=== PATIENT | female | born 1985 | race African-American/Black ===

== ENCOUNTER 2017-02-14 17:56 | Emergency (ER) | payer MEDICAID ==
[~2017-02-14] VITALS: Ht 157.5 cm; Wt 84.8 kg
[2017-02-14 18:04] VITALS: BP 107/60
[2017-02-14] MEDS ORDERED: ACETAMINOPHEN ES 500 MG TABLET PO ONE (18:30)
[2017-02-14 18:32] LABS: APPEARANCE,URINE Clear (CLEAR); BILIRUBIN,URINE Negative (NEGATIVE); BLOOD, URINE Trace-intact Ery/uL (NEGATIVE); COLOR,URINE Yellow (YELLOW); KETONES,URINE Trace (NEGATIVE); LEUKOCYTE ESTERASE ,URINE Small (NEGATIVE); NITRITE, URINE Negative (NEGATIVE); PH,URINE 6.5 (5.0-8.0); PROTEIN,URINE Trace mg/dl (NEGATIVE); UGLUCOSE Negative (NEGATIVE); UROBILINOGEN,URINE 0.2 EU/dL (0.2)
[2017-02-14 19:18] LABS: BACTERIA,URINE Few /HPF (None Seen); CALCIUM OXALATE CRYSTALS,UR Few /HPF (None Seen); MUCUS,URINE Few /LPF (None Seen); RBC,URINE 2-3/HPF /HPF (0-2); SQUAMOUS EPITHELIAL CELL,UR Moderate /HPF (None Seen); URIC ACID CRYSTALS,URINE Few /HPF (None Seen); URINE AMORPHOUS URATE Moderate /HPF (None Seen)
[2017-02-14] MEDS ORDERED: ACETAMINOPHEN ES 500 MG TABLET ONE (19:36)
== END 2017-02-14 19:57 | disposition home or self-care (01) ==
LOC: ER 17:58
DX: O9A.212 Injury, poisoning and certain other consequences of external causes complicating pregnancy, second trimester (principal); M54.2 Cervicalgia; O23.42 Unspecified infection of urinary tract in pregnancy, second trimester; Z3A.18 18 weeks gestation of pregnancy; V43.52XA Car driver injured in collision with other type car in traffic accident, initial encounter; Y93.89 Activity, other specified; Y92.488 Other paved roadways as the place of occurrence of the external cause; Y99.8 Other external cause status
CPT/HCPCS: 36415; 76805-TC; 81000-TC; 84702-TC; 84703-TC; A4606; Z7610